=== PATIENT | female | born 1995 | race Caucasian/White ===

== ENCOUNTER 2016-07-02 18:56 | Emergency (ER) | payer OTHER ==
[2016-07-02 21:19] LABS: BILIRUBIN NEGATIVE (NEGATIVE); BLOOD TRACE-INTACT Ery/uL (NEGATIVE); CLARITY CLEAR (CLEAR); COLOR YELLOW (YELLOW); GLUCOSE (U) NORMAL (NORMAL); KETONE (U) NEGATIVE (NEGATIVE); LEUKOCYTES NEGATIVE Leu/uL (NEGATIVE); NITRITE NEGATIVE (NEGATIVE); PROTEIN NEGATIVE (NEGATIVE); UROBILINOGEN 0.2 mg/dL (0.2-1.0)
[2016-07-02 21:23] LABS: BACTERIA 1+; MUCOUS TRACE; URINARY RBC RARE; URINARY WBC RARE
[2016-07-02 21:25] LABS: BASOPHIL 0.3 % (0-2); EOSINOPHIL 1.8 % (0-5); HCT 37.6 % (37.0-47.0); HGB 13.5 g/dl (12.5-16.0); LYMPHOCYTE 23.5 % (15-48); MCHC 35.9 g/dL (32.0-36.0); MCV 83.6 fL (78.0-100.0); MONOCYTE 7.3 % (0-12); NEUTROPHIL 67.1 % (41-80); PLT 334 K/uL (150-400); RDW 12.5 % (11.5-14.0); WBC 9.4 K/uL (4.0-10.5)
[2016-07-02 21:43] LABS: CREATININE 0.5 mg/dL (0.5-1.0); POTASSIUM 3.5 mmol/L (3.5-5.1)
== END 2016-07-03 00:14 | disposition home or self-care (01) ==
LOC: FER 18:56
PROVIDERS: Emergency Medicine
DX: O21.9 Vomiting of pregnancy, unspecified (principal); Z3A.10 10 weeks gestation of pregnancy
CPT/HCPCS: 36415; 80048; 81001; 84702; 85025; J2405

== ENCOUNTER 2020-07-08 21:34 | Emergency (ER) | payer OTHER ==
[~2020-07-08 21:34] MED LIST: ALL DAY ALLERGY10 M2 PO; BACTRIM DS TAB1 EACH PO; BENTYL10 MG PO; CELEXA20 MG PO; IBUPROFEN800 MG PO; MACROBID100 MG PO; MIRALAX17 GM PO; NAPROXEN500 MG PO; ONDANSETRON ODT4 MG SL; PEPCID AC20 MG PO; PERCOCET 5-3251 EACH PO; PYRIDIUM200 MG PO; SINEQUAN10 MG PO; VIBRAMYCIN100 MG PO
[2020-07-08 22:04] LABS: BILIRUBIN NEGATIVE (NEGATIVE); BLOOD TRACE-LYSED Ery/uL (NEGATIVE); CLARITY HAZY (CLEAR); COLOR YELLOW (YELLOW); GLUCOSE (U) NORMAL (NORMAL); LEUKOCYTES NEGATIVE Leu/uL (NEGATIVE); NITRITE NEGATIVE (NEGATIVE); PROTEIN NEGATIVE (NEGATIVE); UROBILINOGEN 0.2 mg/dL (0.2-1.0)
[2020-07-08 22:11] LABS: AMORPHOUS URATES CRYSTALS MODERATE; BACTERIA 1+
[2020-07-08 22:20] LABS: BASOPHIL 0.4 % (0-2); EOSINOPHIL 2.1 % (0-5); HGB 14.2 g/dl (12.5-16.0); LYMPHOCYTE 31.6 % (15-48); MCH 29.8 pg (25.0-31.0); MCHC 33.8 g/dL (32.0-36.0); MCV 88.2 fL (78.0-100.0); MONOCYTE 9.2 % (0-12); NEUTROPHIL 56.4 % (41-80); NRBC 0; PLT 324 K/uL (150-400); RBC 4.76 M/uL (4.20-5.40); RDW 12.3 % (11.5-14.0); WBC 7.5 K/uL (4.0-10.5)
[2020-07-08 22:38] LABS: ALBUMIN 3.9 g/dL (3.4-5.0); BILIRUBIN - TOTAL 0.3 mg/dL (0.2-1.0); BUN/CREAT RATIO (CALC) 17.2 RATIO; CREATININE 0.64 mg/dL (0.51-0.95); GLOBULIN (CALCULATION) 4.2 g/dL; TOTAL PROTEIN 8.1 g/dL (6.4-8.2)
== END 2020-07-09 00:27 | disposition home or self-care (01) ==
LOC: FER 21:34
PROVIDERS: Emergency Medicine
DX: R10.31 Right lower quadrant pain (principal); Z91.030 Bee allergy status
CPT/HCPCS: 36415; 80053; 81001; 82150; 83690; 85025; J1885; J2405; J7030; Q9967